=== PATIENT | male | born 1945 | race African-American/Black ===

== ENCOUNTER 2017-03-25 07:35 | Day surgery (SDC) | payer MEDICARE ==
[~2017-03-25 07:35] MED LIST: HYDROmorphone 2 MG/ML VIAL IV; LIDOCAINE 1% PF 2 ML VIAL. ID; MORPHINE SULFATE 2 MG/ML DISP.SYRIN. IV; ONDANSETRON PF 4 MG/2 ML VIAL. IV; PROCHLORPERAZINE 10 MG/2 ML VIAL. IV; fentaNYL PF VIAL 100 MCG/2 ML VIAL IV
[2017-03-25 08:16] LABS: ADD MAN DIFF? NO
[2017-03-25] MEDS: IV RINGERS,LACTATED 1000ML 1,000 ML IV (08:18)
[2017-03-25 08:26] LABS: ANION GAP 7 (6-14); BASO % 1 % (0-3); BLOOD UREA NITROGEN 10 mg/dL (8-26); BUN/CREATININE RATIO 10 (6-20); CALCIUM 8.7 mg/dL (8.5-10.1); CARBON DIOXIDE 28 mmol/L (21-32); CHLORIDE 106 mmol/L (98-107); EOS # 0.1 x10^3/uL (0.0-0.7); EOS % 3 % (0-3); GFR 89.4; GLUCOSE 103 mg/dL (70-99); HEMATOCRIT 43.1 % (39.0-53.0); HEMOGLOBIN 14.2 g/dL (13.0-17.5); LYMPH # 1.2 x10^3/uL (1.0-4.8); LYMPH % 33 % (24-48); MEAN CORPUSCULAR HEMOGLOBIN 28 pg (25-35); MEAN CORPUSCULAR HGB CONC 33 g/dL (31-37); MEAN CORPUSCULAR VOLUME 84 fL (79-100); MONO # 0.4 x10^3/uL (0.0-1.1); MONO % 10 % (0-9); NEUT % 54 % (31-73); PLATELET COUNT 205 x10^3/uL (140-400); RED BLOOD COUNT 5.17 x10^6/uL (4.30-5.70); RED CELL DISTRIBUTION WIDTH 16.2 % (11.5-14.5); SODIUM 141 mmol/L (136-145); WHITE BLOOD COUNT 3.8 x10^3/uL (4.0-11.0)
[2017-03-25 08:32] LABS: ALBUMIN 3.2 g/dL (3.4-5.0); ALBUMIN/GLOBULIN RATIO 0.8 (1.0-1.7); ALK PHOS 133 U/L (46-116); ALT (SGPT) 19 U/L (16-63); AST (SGOT) 10 U/L (15-37); TOTAL BILIRUBIN 0.5 mg/dL (0.2-1.0); TOTAL PROTEIN 7.1 g/dL (6.4-8.2)
[2017-03-25 08:39] LABS: PROTHROMBIN TIME PATIENT 12.3 SEC (11.7-14.0)
[2017-03-25] MEDS ORDERED: DEXAMETHASONE SOD PHOS 20 MG/5 ML VIAL. (08:43)
[2017-03-25] MEDS ORDERED: ONDANSETRON PF 4 MG/2 ML VIAL. (08:43)
[2017-03-25] MEDS ORDERED: PROPOFOL 20 ML IV ×2 (08:43→10:30)
[2017-03-25] MEDS ORDERED: LIDOCAINE 1% PF 5 ML VIAL. (08:43)
[2017-03-25] MEDS ORDERED: ROCURONIUM 50 MG/5 ML VIAL. (08:43)
[2017-03-25] MEDS ORDERED: fentaNYL PF VIAL 100 MCG/2 ML VIAL (08:44)
[2017-03-25] MEDS ORDERED: METOPROLOL TARTRATE 5 MG/5 ML VIAL. (09:39)
[2017-03-25] MEDS ORDERED: SEVOFLURANE 61 TO 120 MINUTES. IH (09:46)
[2017-03-25] MEDS: BUPIVACAINE-EPI 0.25%-1:200000 50 ML VIAL. (09:57)
[2017-03-25] MEDS ORDERED: ePHEDrine PF IN SALINE 50 MG/5 ML DISP.SYRIN IV (10:00)
[2017-03-25] MEDS ORDERED: NEOSTIGMINE METHYLSULFATE 5 MG/5 ML SYRINGE. (10:46)
[2017-03-25] MEDS ORDERED: GLYCOPYRROLATE 1 MG/5 ML VIAL. (10:46)
[2017-03-25] MEDS: BUPIVACAINE MPF 0.5% 30 ML VIAL. (11:24)
[2017-03-25] MEDS ORDERED: SEVOFLURANE > 120 MINUTES. IH (13:06)
[2017-03-25] MEDS: HYDROcodone/APAP 7.5/325MG 1 TAB TABLET PO (13:09)
== END 2017-03-25 13:43 | disposition home or self-care (01) ==
LOC: SURG 07:35
DX: K40.30 Unilateral inguinal hernia, with obstruction, without gangrene, not specified as recurrent (principal); E78.00 Pure hypercholesterolemia, unspecified; I10 Essential (primary) hypertension; M19.90 Unspecified osteoarthritis, unspecified site; Z98.41 Cataract extraction status, right eye; Z79.01 Long term (current) use of anticoagulants; Z98.42 Cataract extraction status, left eye; Z87.891 Personal history of nicotine dependence; Z87.39 Personal history of other diseases of the musculoskeletal system and connective tissue; Z96.653 Presence of artificial knee joint, bilateral
CPT/HCPCS: 36415; 80053; 85025; 85610; A4215; C1781; J0690; J1100; J2405; J2704; J2710; J3010; J3490; J7120

== ENCOUNTER 2018-04-26 07:05 | Day surgery (SDC) | payer MEDICARE ==
--- NOTE | 2018-04-24 12:56 | PREOP HP ---
DATE OF SERVICE: 04/26/2018 HISTORY OF PRESENT ILLNESS: The patient is seen for followup for repair of an incarcerated right inguinal hernia. When seen, he also was noted to have a left inguinal hernia at this time, which he did not have in the past. The mass was reducible at the time that he was seen in the office, but has been stuck out, he says, at times causing him some difficulties. He, otherwise, had no other difficulties from this. He wishes to have this repaired and we will plan the same. PAST MEDICAL HISTORY: Has shown that he has had normal childhood diseases. He does take medicine for hypertension. He does not have diabetes, TB, asthma or heart disease. PAST SURGICAL HISTORY: In the past, he has had bilateral knee replacements in 2017 and has had Achilles tendon torn on both sides and repaired this in the past. As a child, he had tonsillectomy. ALLERGIES: He has no allergies. FAMILY HISTORY: Noncontributory. SOCIAL HISTORY: Shows he does not smoke, drink or use illicit drugs. PHYSICAL EXAMINATION: GENERAL: Shows an alert male, in no acute distress. HEAD, EARS, EYES, NOSE AND THROAT: Clear grossly. CHEST: Bilaterally clear to auscultation. HEART: Had no murmurs, friction rubs or thrills, though he did have a small 2/6 systolic murmur heard mostly at the aortic area. The heart rate was 70 beats per minute and it was regular. ABDOMEN: Soft. Bowel sounds were normal. GENITOURINARY: He had the scar noted of the right inguinal hernia repair. There was no evidence of recurrence. He did have a mass on the right side, which was somewhat reducible and increased with increase in intra-abdominal pressure. Testicles and penis were unremarkable. EXTREMITIES: Grossly normal, except for the scars of previous surgery. 1. IMPRESSION: 2. 1. Left inguinal hernia. 3. 2. Hypertension. 4. 3. Status post bilateral knee replacements. 5. 4. Status post Achilles tendon repair bilaterally. 5. Status post repair of right inguinal hernia. STEPAN NOGUEIRA MD DR: RUBEN/burak JOB#: [id number] / [id number] TANIA
[~2018-04-26] VITALS: Ht 182.9 cm; Wt 97.5 kg
[~2018-04-26 07:05] MED LIST changes: +AMLO1CAP15 PO; +ASPI325T8 PO; +ATOR40TA PO; +DUTA0.5C PO; +HYDR-2765 PO; -HYDROmorphone 2 MG/ML VIAL IV; +HYDROmorphone 2 MG/ML VIAL IV PRN; +IV RINGERS,LACTATED 1000ML 1,000 ML IV SCH; -LIDOCAINE 1% PF 2 ML VIAL. ID; +LIDOCAINE 1% PF 2 ML VIAL. ID PRN; +METO25TA4 PO; -MORPHINE SULFATE 2 MG/ML DISP.SYRIN. IV; +MORPHINE SULFATE 4 MG/ML VIAL. IV PRN; +NAPR220T70 PO; -ONDANSETRON PF 4 MG/2 ML VIAL. IV; +ONDANSETRON PF 4 MG/2 ML VIAL. IV PRN; -PROCHLORPERAZINE 10 MG/2 ML VIAL. IV; +PROCHLORPERAZINE 10 MG/2 ML VIAL. IV PRN; -fentaNYL PF VIAL 100 MCG/2 ML VIAL IV; +fentaNYL PF VIAL 100 MCG/2 ML VIAL IV PRN
[2018-04-26] MEDS ORDERED: NEOSTIGMINE 10 MG/10 ML VIAL. ONE (08:35)
[2018-04-26] MEDS ORDERED: SEVOFLURANE > 120 MINUTES. IH ONE (08:35)
[2018-04-26] MEDS ORDERED: fentaNYL PF VIAL 100 MCG/2 ML VIAL ONE ×2 (08:36→10:54)
[2018-04-26] MEDS ORDERED: MIDAZOLAM HCL/PF 2 MG/2 ML VIAL. ONE (08:36)
[2018-04-26] MEDS ORDERED: ROCURONIUM 50 MG/5 ML VIAL. ONE (08:36)
[2018-04-26] MEDS ORDERED: LIDOCAINE 2% PF 5 ML VIAL. ONE (08:37)
[2018-04-26] MEDS ORDERED: ONDANSETRON PF 4 MG/2 ML VIAL. ONE (08:37)
[2018-04-26] MEDS ORDERED: PROPOFOL 20 ML IV ONE (08:37)
[2018-04-26] MEDS ORDERED: DEXAMETHASONE SOD PHOS 20 MG/5 ML VIAL. ONE (08:37)
[2018-04-26] MEDS ORDERED: GLYCOPYRROLATE 1 MG/5 ML VIAL. ONE (09:03)
[2018-04-26 09:18] LABS: BASO % 1 % (0-3); EOS # 0.1 x10^3/uL (0.0-0.7); EOS % 2 % (0-3); HEMATOCRIT 46.2 % (39.0-53.0); HEMOGLOBIN 15.4 g/dL (13.0-17.5); LYMPH # 1.4 x10^3/uL (1.0-4.8); LYMPH % 31 % (24-48); MEAN CORPUSCULAR HEMOGLOBIN 30 pg (25-35); MEAN CORPUSCULAR HGB CONC 33 g/dL (31-37); MEAN CORPUSCULAR VOLUME 89 fL (79-100); MONO # 0.4 x10^3/uL (0.0-1.1); MONO % 9 % (0-9); NEUT # 2.5 x10^3uL (1.8-7.7); NEUT % 57 % (31-73); PLATELET COUNT 199 x10^3/uL (140-400); RED BLOOD COUNT 5.21 x10^6/uL (4.30-5.70); RED CELL DISTRIBUTION WIDTH 13.8 % (11.5-14.5); WHITE BLOOD COUNT 4.4 x10^3/uL (4.0-11.0)
[2018-04-26] MEDS ORDERED: BUPIVAC MPF-EPI 0.5%-1:200000 30 ML VIAL. ONE ×2 (09:23→12:08)
--- NOTE | 2018-04-26 09:24 | PDOC4 ---
Operative Note Operative Note Operative Report Surgeon: Tristen Nogueira MD Pre-operative diagnosis: Left Inguinal Hernia Post-operative diagnosis: Left Inguinal Hernia incarcerated Anesthesia: General Procedure: Left Inguinal Hernia repair Drains: none Fluids: see anesthesia sheet Blood Loss: 17cc Condition: Satisfactory TRISTEN NOGUEIRA MD Apr 26, 2018 09:24
[2018-04-26 09:33] LABS: CALCIUM 9.3 mg/dL (8.5-10.1); CREATININE 1.1 mg/dL (0.7-1.3); GFR 79.8; POTASSIUM 3.9 mmol/L (3.5-5.1)
[2018-04-26 09:37] LABS: PROTHROMBIN TIME PATIENT 13.1 SEC (11.7-14.0)
[2018-04-26 09:42] LABS: ALBUMIN 3.1 g/dL (3.4-5.0); ALBUMIN/GLOBULIN RATIO 0.7 (1.0-1.7); TOTAL BILIRUBIN 0.3 mg/dL (0.2-1.0); TOTAL PROTEIN 7.3 g/dL (6.4-8.2)
[2018-04-26] MEDS ORDERED: hydrALAZINE 20 MG/ML VIAL. ONE (10:52)
[2018-04-26] MEDS ORDERED: KETOROLAC 30 MG/ML INJ FOR OR. INJ ONE (12:12)
[2018-04-26] MEDS ORDERED: BUPIVAC MPF-EPI 0.5%-1:200000 30 ML VIAL. INJ ONE (12:26)
[2018-04-26] MEDS ORDERED: OXYC1TAB19 PO (13:44)
[2018-04-26] MEDS ORDERED: DOCU-109 PO (13:47)
[2018-04-26] MEDS ORDERED: PSYL575P4 PO (13:47)
[2018-04-26 14:10] VITALS: BP 146/73
--- NOTE | 2018-04-27 11:01 | OP ---
DATE OF SURGERY: SURGEON: Tristen Nogueira MD PREOPERATIVE DIAGNOSIS: Incarcerated left inguinal hernia. POSTOPERATIVE DIAGNOSIS: Incarcerated left inguinal hernia. ANESTHESIA: General. PROCEDURE: Repair of incarcerated left inguinal hernia. TECHNIQUE: The patient was properly prepped and draped in routine fashion. Hernia being on the left side, we made an incision following the skin lines in the left groin. We did this with a 15 blade and went through the skin to the subcutaneous. We then went through the subcutaneous with cautery down to the fascia. We divided the external oblique aponeurosis in the direction of the fibers in an oblique fashion with a 15 blade. We then passed the scissors under this and opened up the fascia through the external inguinal ring. We then got the cord structures off of this area and there was a large mass there mostly lateral to the cord. We went around the cord at the pubic tubercle, pulled up with a Ld drain and then divided some of the cremasteric fibers. We then opened the cord structures and most of the mass appeared to be fat. We slowly moved it, it was quite a bit of fat, once it was mobilized, we could then reduce it. However, we then pulled it back out with Margaret clamps and divided this area using gauze pads just from all the surrounding tissues. We then opened the cord more and make certain there was no sac. We did not see an actual sac there, but he had lot of preperitoneal fat coming down the cord. This was then reduced, and then an extra-large PerFix plug was placed there. This was ____ type said that did not have the other available. We then sutured this in place using 4-0 Vicryl and it stayed in there with no problems and no pressure. We then identified the posterior floor, which was somewhat weak as the cord structures and all had been pushed medially and we then placed the patch there. We put it around the cord structures, making certain it would not be too tight and sutured a keyhole that we had made using a 2-0 Prolene. This made the cord go through it slipped and there was no stricture or tightness of the cord structures. This was placed on posterior floor and then using 0 Prolene suture, we sutured at the pubic tubercle, two sutures, one ran laterally taking the shelving edge of Poupart's ligament all up past the internal inguinal ring and the other one medially taking transversalis fascia, past the cord back to the inguinal ring. These were tied separately and basically the procedure was terminated. He had a good posterior flow and the hernia had been reduced and the plug placed. We inspected the area, there was no further bleeding. As we placed the cord structures and all back in normal location and then decided we would close the wound. The external oblique aponeurosis was closed only after we had injected 0.25% Marcaine into the areas of previous surgery and it should be noted that the plug was also fixed to the shelving edge of Poupart's ligament laterally where the hernia had been reduced. We then anesthetized all the area with 0.25% Marcaine and then all structures being in place, we approximated the external oblique aponeurosis using 0 Prolene suture and then anesthetized this with 0.25% Marcaine with epinephrine. Subcutaneous was irrigated with copious amounts of saline and approximated with 4-0 Vicryl. Skin was closed using a 5-0 subcuticular Vicryl. A sterile Tegaderm dressing was applied and the procedure was terminated. The blood loss was probably 10-15 mL. Fluids given can be obtained from the anesthesia sheet. No drains were used and the condition of the patient was satisfactory as he is returned to the recovery room. TRISTEN NOGUEIRA MD DR: RUBEN/burak JOB#: [id number] / [id number]
== END 2018-04-26 14:46 | disposition home or self-care (01) ==
LOC: SURG 07:05
PROVIDERS: ATTEND Specialist
DX: K40.30 Unilateral inguinal hernia, with obstruction, without gangrene, not specified as recurrent (principal); I10 Essential (primary) hypertension; Z96.653 Presence of artificial knee joint, bilateral; Z98.890 Other specified postprocedural states; Z79.01 Long term (current) use of anticoagulants; Z79.899 Other long term (current) drug therapy
CPT/HCPCS: 36415; 49507; 80053; 85025; 85610; 85730; A7015; C1781; J0360; J0690; J0696; J1100; J1885; J2001; J2250; J2405; J2704; J2710; J3010; J3490; J7120